=== PATIENT | female | born 1990 | race Hispanic/Latino ===

== ENCOUNTER 2024-04-05 21:51 | Emergency (ER) | payer OTHER ==
[~2024-04-05] VITALS: Ht 172.7 cm; Wt 100.7 kg
[2024-04-05] MEDS ORDERED: KETOROLAC TROMETHAMINE 60 MG/2 ML VIAL IM ONE (22:00)
[2024-04-05] MEDS ORDERED: CELEBREX100 MG PO (22:39)
[2024-04-05] MEDS ORDERED: CYCLOBENZAPRINE10 MG PO (22:39)
[2024-04-05] MEDS ORDERED: CYCLOBENZAPRINE HCL 10 MG HOME.PACK PO ONE (22:45)
[2024-04-05 22:58] VITALS: BP 140/84
== END 2024-04-05 22:58 | disposition home or self-care (01) ==
LOC: ED 21:51
DX: S46.811A Strain of other muscles, fascia and tendons at shoulder and upper arm level, right arm, initial encounter (principal); X50.0XXA Overexertion from strenuous movement or load, initial encounter
CPT/HCPCS: 72040; 73030; J1885